=== PATIENT | male | born 1955 | race Caucasian/White ===

== ENCOUNTER 2020-06-04 13:36 | Emergency (ER) | payer OTHER, BC ==
[~2020-06-04] VITALS: Ht 165.1 cm; Wt 72.6 kg
[2020-06-04 13:38] VITALS: Ht 165.1 cm; Wt 72.6 kg
[2020-06-04 14:32] VITALS: BP 151/76
== END 2020-06-04 14:32 | disposition home or self-care (01) ==
LOC: ED 13:36
DX: B34.9 Viral infection, unspecified (principal)
CPT/HCPCS: U0003